=== PATIENT | female | born 1975 | race Caucasian/White ===

== ENCOUNTER 2021-06-14 12:42 | Emergency (ER) | payer SELFPAY ==
[2021-06-14 15:38] VITALS: PULSE 82; RESP 19; TEMP 36.9; O2SAT 100; BMI 26.1
[2021-06-14 15:41] VITALS: BP 134/91; PULSE 82; RESP 19; TEMP 36.6
--- NOTE | 2021-06-14 15:55 | HMH.EDUTC ---
[facility] [place] Disposition Clinical Impression: Viral syndrome, Exposure to COVID-19 virus Disposition: Home, Self-Care Condition on Discharge: Good Instructions: DI for Viral Syndrome, DI for COVID-19 (Suspected or Confirmed ), Preventing the Spread of Coronavirus Discharge Instructions Additional Instructions: Drink plenty of fluids. Take tylenol for pain or fever. Return if you begin to have difficulty breathing. Follow up with your regular doctor. GO TO THE ER FOR ANY WORSENING SYMPTOMS Quarantine until you know the results of your covid-19 test. If it is positive, the health department should call you and give you further instructions about your length of Quarantine and other things. Notify your school or workplace of your results and follow their instructions regarding return to work/school. Beber mucho l?quido. Organ tylenol para el dolor o la fiebre. Regrese si comienza a tener dificultad para respirar. Williams un seguimiento con cruz m?dico habitual. VAYA A LA URGENCIA POR CUALQUIER S?NTOMA QUE EMPIEZA [place] en cuarentena hasta que conozca los resultados de cruz prueba covid-19. Si es positivo, el departamento de rahat debe llamarlo y darle m?s instrucciones sobre la duraci?n de la cuarentena y otras cosas. Notifique a cruz escuela o lugar de trabajo sobre [place] resultados y siga [place] instrucciones con respecto al regreso al trabajo / escuela. Prescriptions: Guaifenesin/Dextromethorphan [Guaifenesin-Dm 200-20 mg/10 ml] 10 ml PO Q6HP PRN #240 ml PRN Reason: Cough Transmission Status: Received by [id number] Ondansetron [Zofran 4mg ODT] 4 mg PO Q8HP PRN #12 tab PRN Reason: Nausea Transmission Status: Received by [id number] Referrals: Provider,Referral, MD [Primary Care Provider] - Forms: Work/School Release Time of Disposition: 16:07 Medical Decision Making - Medical Records Medical records reviewed: No: I reviewed the patient's medical records. - [place] Inquiry Pt receiving controlled substance: No Vital Signs: 06/14/21 15:38 06/14/21 15:41 Temperature 98.4 F 98 F Temperature Source Oral Oral Pulse Rate 82 Pulse Rate [Left] 82 Respiratory Rate 19 19 Blood Pressure 134/91 H 02 Sat by Pulse Oximetry 100 - Lab Data Lab Results 06/14/21 16:00: Strep Scn Rapid Clinic Negative [facility] [place] HPI - General Stated complaint: cough, headache, fever Time Seen by Provider: 06/14/21 15:55 Mode of Arrival: Ambulatory Source of Information: Patient Limitations: No Limitations Description of Symptoms (Recalled from Triage Doc. by RN): PT C/O OF BACK PAIN THAT RADIATES INTO BOTH LEGS X4 DAYS. HEENT Symptoms (Recalled from RN notes): No Resp Symptoms (Recalled from RN notes): No Skin Symptoms (Recalled from RN notes): No MS Symptoms (Recalled from RN notes): Yes (BACK PAIN RADIATING INTO BOTH LEGS) Functional Status (Recalled from RN notes): NA - History of Present Illness Provider Complaint: She c/o feeling bad, having a headache, and chilling for the past 2 days. - Related Data Previous Rx's Medication Instructions Recorded Guaifenesin/Dextromethorphan 10 ml PO Q6HP PRN #240 ml 06/14/21 [Guaifenesin-Dm 200-20 mg/10 ml] Ondansetron [Zofran 4mg ODT] 4 mg PO Q8HP PRN #12 tab 06/14/21 - Worker's Comp Is this a Worker's Comp case?: No [facility] History - Hepatitis A Screen Drug use history?: No High risk sexual behaviors?: No History of sexually transmitted infection?: No Currently employed?: No Childcare worker?: No Do you have indoor plumbing?: Yes Do you have electricity?: Yes Attestation statement:: This patient has been screened for Hepatitis A risk factors. I have reviewed the patient's past medical history: Yes ROS Obtained: Yes All systems reviewed & no additional complaints - Constitutional Constitutional: Reports system reviewed and no additional complaints, except as docu - Eyes Eyes: Reports system reviewed and no
[2021-06-14 16:24] LABS: UTC Strep Screen (Rapid) Negative (Negative)
--- NOTE | 2021-06-15 09:24 | PC.NURSE ---
left voicemail for pt asking for a return call
== END 2021-06-14 16:32 | disposition home or self-care (01) ==
PROVIDERS: Emergency Provider Nurse Practitioner Family
DX: U07.1 COVID-19 (principal); B34.9 Viral infection, unspecified
CPT/HCPCS: 87880; 99203; G0463; U0003

== ENCOUNTER 2021-06-23 13:32 | Emergency (ER) | payer SELFPAY ==
[2021-06-23 14:45] VITALS: BP 123/78; PULSE 69; RESP 14; TEMP 36.9; O2SAT 100; BMI 29.2
[2021-06-23 14:48] VITALS: BP 123/78; PULSE 69; RESP 18; TEMP 36.9
--- NOTE | 2021-06-23 15:26 | HMH.EDUTC ---
[facility] [place] Clinical Impression: COVID-19 Disposition: Home, Self-Care Condition on Discharge: Good Instructions: DI for COVID-19 (Suspected or Confirmed ), Preventing the Spread of Coronavirus Discharge Instructions Additional Instructions: Drink plenty of fluids. Take tylenol for pain or fever. Return if you begin to have difficulty breathing. Follow up with your regular doctor. GO TO THE ER FOR ANY WORSENING SYMPTOMS Quarantine until you know the results of your covid-19 test. If it is positive, the health department should call you and give you further instructions about your length of Quarantine and other things. Notify your school or workplace of your results and follow their instructions regarding return to work/school. Referrals: Provider,Referral, [Primary Care Provider] - Time of Disposition: 15:34 Medical Decision Making - Medical Records Medical records reviewed: No: I reviewed the patient's medical records. - [place] Inquiry Pt receiving controlled substance: No Vital Signs: 06/23/21 14:45 06/23/21 14:48 Temperature 98.5 F 98.5 F Temperature Source Oral Pulse Rate 69 Pulse Rate [Left] 69 Respiratory Rate 14 18 Blood Pressure 123/78 Blood Pressure [Right Arm] 123/78 Blood Pressure Mean [Right Arm] 93 02 Sat by Pulse Oximetry 100 [facility] [place] - General Stated complaint: retest for covid Time Seen by Provider: 06/23/21 15:26 Mode of Arrival: Ambulatory Source of Information: Patient Limitations: No Limitations Description of Symptoms (Recalled from Triage Doc. by RN): pt tested positive for covid ten days ago. employer wants a retest. HEENT Symptoms (Recalled from RN notes): No Resp Symptoms (Recalled from RN notes): No Skin Symptoms (Recalled from RN notes): No MS Symptoms (Recalled from RN notes): No Functional Status (Recalled from RN notes): na - History of Present Illness Provider Complaint: She has had covid-19. She is feeling better. She was brought here for a covid-19 test to see if she is negative now. - Related Data Previous Rx's Medication Instructions Recorded Guaifenesin/Dextromethorphan 10 ml PO Q6HP PRN #240 ml 06/14/21 [Guaifenesin-Dm 200-20 mg/10 ml] Ondansetron [Zofran 4mg ODT] 4 mg PO Q8HP PRN #12 tab 06/14/21 Allergies Allergy/AdvReac Type Severity Reaction Status Date / Time No Known Allergies Allergy Verified 06/23/21 14:47 - Worker's Comp Is this a Worker's Comp case?: No [facility] History - Hepatitis A Screen Drug use history?: No High risk sexual behaviors?: No History of sexually transmitted infection?: No Currently employed?: No Childcare worker?: No Do you have indoor plumbing?: Yes Do you have electricity?: Yes Attestation statement:: This patient has been screened for Hepatitis A risk factors. I have reviewed the patient's past medical history: Yes ROS Obtained: Yes All systems reviewed & no additional complaints - Constitutional Constitutional: Reports system reviewed and no additional complaints, except as docu - Eyes Eyes: Reports system reviewed and no additional complaints, except as docu - ENT Ears, Nose, Mouth, and Throat: Reports system reviewed and no additional complaints, except as docu - Cardiovascular Cardiovascular: Reports system reviewed and no additional complaints, except as docu - Respiratory Respiratory: Reports system reviewed and no additional complaints, except as docu - Gastrointestinal Gastrointestingal: Reports: system reviewed and no additional complaints, except as docu Physical Exam - General General appearance: alert, in no apparent distress - Head Head exam: atraumatic, normocephalic, normal inspection - Eye Eye exam: Present: normal appearance, PERRL, EOMI - ENT ENT exam: Present: normal exam, normal oropharynx, mucous membranes moist, TM's normal bilaterally, normal external ear exam - Neck Neck exam: Present: normal inspection, full R
== END 2021-06-23 15:42 | disposition home or self-care (01) ==
PROVIDERS: Emergency Provider Nurse Practitioner Family
DX: U07.1 COVID-19 (principal)
CPT/HCPCS: 99202; C9803; G0463; U0003; U0005